=== PATIENT | male | born 1955 | race Caucasian/White ===

== ENCOUNTER 2020-08-06 04:10 | Emergency (ER) | payer MEDICARE ==
[~2020-08-06 04:10] MED LIST: ASPIRIN EC81 MG PO; CATAPRES 0.1MG0.1 MG PO; CIPRO500 MG PO; FLOMAX 0.4 MG0.4 MG PO; FLOMAX0.4 MG PO; LIPITOR TAB 2020 MG PO; PEPCID AC20 MG PO; PREDNISONE 10 M10 MG PO; THERAGRAN M TAB1 EA PO; VITAMIN B-121000 MCG PO; ZYLOPRIM 100 M100 MG PO
[2020-08-06 04:49] LABS: RED BLOOD COUNT 3.79 M/UL (4.20-5.50); WHITE BLOOD COUNT 10.1 K/UL (4.5-11.0)
[2020-08-06 05:14] LABS: BUN/CREATININE RATIO 7 (0-10)
[2020-08-06] MEDS ORDERED: NEURONTIN100 MG PO (06:42)
== END 2020-08-06 07:13 | disposition home or self-care (01) ==
LOC: ER1 04:10
PROVIDERS: Family Medicine
DX: R53.1 Weakness (principal); R29.6 Repeated falls; Z88.5 Allergy status to narcotic agent; Z88.8 Allergy status to other drugs, medicaments and biological substances; Z90.89 Acquired absence of other organs
CPT/HCPCS: 70450; 71045; 80053; 82550; 82553; 83874; 83880; 84484; 85025; 93005; 99284

== ENCOUNTER 2020-11-06 23:49 | Observation (INO) | payer MEDICARE ==
[~2020-11-06] VITALS: Ht 165.1 cm; Wt 92.5 kg
[~2020-11-06 23:49] MED LIST changes: +NEURONTIN100 MG PO
[2020-11-07 01:12] LABS: RED BLOOD COUNT 3.77 M/UL (4.20-5.50); WHITE BLOOD COUNT 11.3 K/UL (4.5-11.0)
[2020-11-07 01:23] LABS: BUN/CREATININE RATIO 7 (0-10)
[2020-11-07] MEDS ORDERED: ROPINIROLE HCL0.5 MG PO (13:54)
[2020-11-07] MEDS ORDERED: PROTONIX40 MG PO (13:54)
[2020-11-07] MEDS ORDERED: SAW PALMETTO160 MG PO (13:55)
[2020-11-07] MEDS ORDERED: COZAAR100 MG PO (13:55)
[2020-11-07] MEDS ORDERED: FERROUS SULFAT325 M2 PO (13:56)
[2020-11-07] MEDS ORDERED: DAILY VALUE1 EACH PO (13:56)
[2020-11-07] MEDS ORDERED: FUROSEMIDE40 MG PO (13:57)
[2020-11-07] MEDS ORDERED: METOPROLOL TAR100 MG PO (17:48)
[2020-11-07] MEDS ORDERED: CALCIUM ACETAT667 MG PO (17:56)
[2020-11-09] MEDS ORDERED: BRILINTA 90 MG90 MG PO (10:50)
== END 2020-11-08 13:38 | disposition home or self-care (01) ==
LOC: ER1 23:49 → CDU 11-07 03:55 → MED SURG 4 11-07 03:55
PROVIDERS: Physician Assistant; ADMIT Internal Medicine
DX: R07.89 Other chest pain (principal); I25.10 Atherosclerotic heart disease of native coronary artery without angina pectoris; I13.11 Hypertensive heart and chronic kidney disease without heart failure, with stage 5 chronic kidney disease, or end stage renal disease; E11.22 Type 2 diabetes mellitus with diabetic chronic kidney disease; N18.6 End stage renal disease; E11.40 Type 2 diabetes mellitus with diabetic neuropathy, unspecified; Z20.822 Contact with and (suspected) exposure to COVID-19; Z99.2 Dependence on renal dialysis; Z95.1 Presence of aortocoronary bypass graft; Z86.73 Personal history of transient ischemic attack (TIA), and cerebral infarction without residual deficits; Z88.5 Allergy status to narcotic agent; Z88.6 Allergy status to analgesic agent; Z88.8 Allergy status to other drugs, medicaments and biological substances; Z79.82 Long term (current) use of aspirin; Z79.899 Other long term (current) drug therapy
CPT/HCPCS: 71045; 78452; 80053; 81001; 82550; 82553; 82962; 83605; 83874; 83880; 84484; 85025; 85610; 85730; 87040; 87086; 93017; 99285; A9502; G0378; J2405; J2785; U0002

== ENCOUNTER 2020-11-09 02:36 | Inpatient (IN) | payer MEDICARE ==
[~2020-11-09] VITALS: Ht 165.1 cm; Wt 97.5 kg
[~2020-11-09 02:36] MED LIST changes: +CALCIUM ACETAT667 MG PO; +COZAAR100 MG PO; +DAILY VALUE1 EACH PO; +FERROUS SULFAT325 M2 PO; +FUROSEMIDE40 MG PO; +METOPROLOL TAR100 MG PO; +PROTONIX40 MG PO; +ROPINIROLE HCL0.5 MG PO; +SAW PALMETTO160 MG PO
[2020-11-09 03:15] LABS: RED BLOOD COUNT 3.76 M/UL (4.20-5.50)
[2020-11-09 03:50] LABS: BUN/CREATININE RATIO 8 (0-10)
[2020-11-09 07:33] LABS: HEMOGLOBIN 9.4 gm/dl (14.0-17.5); RED BLOOD COUNT 3.18 M/UL (4.20-5.50); WHITE BLOOD COUNT 10.3 K/UL (4.5-11.0)
[2020-11-09] MEDS ORDERED: BRILINTA 90 MG90 MG PO (10:50)
== END 2020-11-09 17:26 | disposition short-term general hospital (02) | DRG 228 ==
LOC: ER1 02:36 → CCU 05:33
PROVIDERS: Emergency Medicine; Internal Medicine Interventional Cardiology; ADMIT Internal Medicine
PROC: B24BZZ4 Ultrasonography of Heart with Aorta, Transesophageal (ICD-10-PCS; principal; 2020-11-09)
PROC: 027034Z Dilation of Coronary Artery, One Artery with Drug-eluting Intraluminal Device, Percutaneous Approach (ICD-10-PCS; 2020-11-09)
PROC: 02C00ZZ Extirpation of Matter from Coronary Artery, One Artery, Open Approach (ICD-10-PCS; 2020-11-09)
PROC: 4A023N7 Measurement of Cardiac Sampling and Pressure, Left Heart, Percutaneous Approach (ICD-10-PCS; 2020-11-09)
PROC: B2111ZZ Fluoroscopy of Multiple Coronary Arteries using Low Osmolar Contrast (ICD-10-PCS; 2020-11-09)
DX: I21.19 ST elevation (STEMI) myocardial infarction involving other coronary artery of inferior wall (principal); N18.6 End stage renal disease; I12.0 Hypertensive chronic kidney disease with stage 5 chronic kidney disease or end stage renal disease; I25.10 Atherosclerotic heart disease of native coronary artery without angina pectoris; R78.5 Finding of other psychotropic drug in blood; I34.0 Nonrheumatic mitral (valve) insufficiency; E66.9 Obesity, unspecified; Z88.8 Allergy status to other drugs, medicaments and biological substances; Z95.1 Presence of aortocoronary bypass graft; Z99.2 Dependence on renal dialysis; Z79.82 Long term (current) use of aspirin; Z81.1 Family history of alcohol abuse and dependence; Z82.49 Family history of ischemic heart disease and other diseases of the circulatory system; Z83.3 Family history of diabetes mellitus; Z88.6 Allergy status to analgesic agent; Z90.49 Acquired absence of other specified parts of digestive tract; Z68.35 Body mass index [BMI] 35.0-35.9, adult
CPT/HCPCS: ECHO; 36415; 71045; 78452; 80048; 80053; 81001; 82550; 82553; 82962; 83605; 83874; 83880; 84484; 85025; 85027; 85610; 85730; 87040; 87086; 90945; 93005; 93017; 93306; 99285; A9502; C1725; C1757; C1769; C1887; G0378; J0461; J0583; J1644; J2250; J2405; J2785; J3010; J3246; J7040; Q9965; U0002

== ENCOUNTER 2021-04-12 18:43 | Inpatient (IN) | payer MEDICARE ==
[~2021-04-12] VITALS: Ht 165.1 cm; Wt 88.0 kg
[~2021-04-12 18:43] MED LIST changes: +BRILINTA 90 MG90 MG PO
[2021-04-12 19:32] LABS: HEMOGLOBIN 10.6 gm/dl (14.0-17.5); RED BLOOD COUNT 3.57 M/UL (4.20-5.50); WHITE BLOOD COUNT 13.6 K/UL (4.5-11.0)
[2021-04-13 04:18] LABS: HEMOGLOBIN 10.3 gm/dl (14.0-17.5); RED BLOOD COUNT 3.47 M/UL (4.20-5.50); WHITE BLOOD COUNT 12.4 K/UL (4.5-11.0)
[2021-04-14 04:06] LABS: HEMOGLOBIN 10.5 gm/dl (14.0-17.5); RED BLOOD COUNT 3.53 M/UL (4.20-5.50); WHITE BLOOD COUNT 10.9 K/UL (4.5-11.0)
--- NOTE | 2021-04-14 04:34 | NUR ---
PATIENT TOOK HIMSELF OFF DIALYSIS MACHINE. CALLED DIALYSIS NURSE, SHE IS AWARE AND STATED IT WOULD BE OKAY THAT SHE WOULD BE HERE AROUND 8AM.
[2021-04-14] MEDS ORDERED: ELIQUIS 2.5 MG2.5 MG PO (11:56)
[2021-04-14] MEDS ORDERED: LOPRESSOR 25 MG25 MG PO (11:56)
[2021-04-14] MEDS ORDERED: ISOSORBIDE MONO30 MG PO (11:56)
== END 2021-04-14 14:25 | disposition home or self-care (01) | DRG 280 ==
LOC: ER1 18:43 → CDU 20:26 → PROG CARE 20:26
PROVIDERS: Family Medicine; Internal Medicine; ADMIT Internal Medicine
PROC: B24BZZ4 Ultrasonography of Heart with Aorta, Transesophageal (ICD-10-PCS; principal; 2021-04-13)
PROC: 4A023N7 Measurement of Cardiac Sampling and Pressure, Left Heart, Percutaneous Approach (ICD-10-PCS; 2021-04-13)
PROC: B2111ZZ Fluoroscopy of Multiple Coronary Arteries using Low Osmolar Contrast (ICD-10-PCS; 2021-04-13)
PROC: B2131ZZ Fluoroscopy of Multiple Coronary Artery Bypass Grafts using Low Osmolar Contrast (ICD-10-PCS; 2021-04-13)
PROC: B2151ZZ Fluoroscopy of Left Heart using Low Osmolar Contrast (ICD-10-PCS; 2021-04-13)
PROC: 3E1M39Z Irrigation of Peritoneal Cavity using Dialysate, Percutaneous Approach (ICD-10-PCS; 2021-04-13)
PROC: B2181ZZ Fluoroscopy of Left Internal Mammary Bypass Graft using Low Osmolar Contrast (ICD-10-PCS; 2021-04-13)
DX: I21.4 Non-ST elevation (NSTEMI) myocardial infarction (principal); N18.6 End stage renal disease; I12.0 Hypertensive chronic kidney disease with stage 5 chronic kidney disease or end stage renal disease; E87.3 Alkalosis; T82.868A Thrombosis due to vascular prosthetic devices, implants and grafts, initial encounter; I25.110 Atherosclerotic heart disease of native coronary artery with unstable angina pectoris; Z20.822 Contact with and (suspected) exposure to COVID-19; G25.81 Restless legs syndrome; N40.0 Benign prostatic hyperplasia without lower urinary tract symptoms; Z96.0 Presence of urogenital implants; E78.5 Hyperlipidemia, unspecified; Z99.2 Dependence on renal dialysis; Z86.73 Personal history of transient ischemic attack (TIA), and cerebral infarction without residual deficits; Z95.1 Presence of aortocoronary bypass graft; Z90.49 Acquired absence of other specified parts of digestive tract; Z88.5 Allergy status to narcotic agent; Z82.49 Family history of ischemic heart disease and other diseases of the circulatory system; Z79.899 Other long term (current) drug therapy; K21.9 Gastro-esophageal reflux disease without esophagitis
CPT/HCPCS: ECHO; 36415; 36600; 71045; 80048; 80053; 82550; 82553; 82803; 83036; 83735; 83874; 84484; 85025; 85730; 90945; 93005; 93306; 99152; 99153; 99285; C1760; C1769; C1894; J1170; J1644; J2250; J2550; J3010; J7040; Q9965; U0002

== ENCOUNTER 2021-07-14 20:43 | Emergency (ER) | payer MEDICARE ==
[~2021-07-14 20:43] MED LIST changes: +ELIQUIS 2.5 MG2.5 MG PO; +ISOSORBIDE MONO30 MG PO; +LOPRESSOR 25 MG25 MG PO
[2021-07-14 21:27] LABS: HEMOGLOBIN 11.1 gm/dl (14.0-17.5); RED BLOOD COUNT 3.59 M/UL (4.20-5.50); WHITE BLOOD COUNT 10.9 K/UL (4.5-11.0)
== END 2021-07-15 03:15 | disposition home or self-care (01) ==
LOC: ER1 20:43
PROVIDERS: Family Medicine
DX: R55 Syncope and collapse (principal); S39.012A Strain of muscle, fascia and tendon of lower back, initial encounter; S70.02XA Contusion of left hip, initial encounter; K59.00 Constipation, unspecified; R51.9 Headache, unspecified; N18.6 End stage renal disease; I11.9 Hypertensive heart disease without heart failure; E78.5 Hyperlipidemia, unspecified; I25.10 Atherosclerotic heart disease of native coronary artery without angina pectoris; Z95.1 Presence of aortocoronary bypass graft; Z99.2 Dependence on renal dialysis; Z88.5 Allergy status to narcotic agent; W19.XXXA Unspecified fall, initial encounter
CPT/HCPCS: 70450; 71045; 72131; 72192; 73502; 80053; 81001; 82550; 82553; 84484; 85025; 87086; 93005; 99285

== ENCOUNTER 2021-09-10 11:34 | Inpatient (IN) | payer MEDICARE ==
[~2021-09-10] VITALS: Ht 165.1 cm; Wt 79.5 kg
[~2021-09-10 11:34] MED LIST changes: -LIPITOR TAB 2020 MG PO; +LIPITOR80 MG PO; -SAW PALMETTO160 MG PO
[2021-09-10 12:42] LABS: HEMOGLOBIN 10.3 gm/dl (14.0-17.5); RED BLOOD COUNT 3.37 M/UL (4.20-5.50)
[2021-09-10] MEDS ORDERED: SAW PALMETTO160 MG PO (13:55)
[2021-09-10] MEDS ORDERED: LORATADINE10 MG PO (16:25)
[2021-09-10] MEDS ORDERED: RENVELA800 MG PO (16:26)
[2021-09-10] MEDS ORDERED: LISINOPRIL10 MG PO (16:27)
[2021-09-10] MEDS ORDERED: NITROGLYCERIN0.4 MG SL (16:28)
[2021-09-10] MEDS ORDERED: METOPROLOL TART50 MG PO (16:29)
[2021-09-10] MEDS ORDERED: BRILINTA90 MG PO (17:18)
[2021-09-10] MEDS ORDERED: ELIQUIS2.5 MG PO (17:23)
[2021-09-11 08:29] LABS: HEMOGLOBIN 10.4 gm/dl (14.0-17.5); RED BLOOD COUNT 3.49 M/UL (4.20-5.50)
[2021-09-11 08:40] LABS: WHITE BLOOD COUNT 17.5 K/UL (4.5-11.0)
[2021-09-13 09:18] LABS: HBSAG SCREEN Negative (Negative); HCV AB <0.1 (0.0-0.9); HEP A AB, IGM Negative (Negative); HEP B CORE AB, IGM Negative (Negative)
[2021-09-13] MEDS ORDERED: RANEXA500 MG PO (12:10)
== END 2021-09-14 12:25 | disposition home or self-care (01) | DRG 302 ==
LOC: ER1 11:34 → CDU 14:20 → CCU 19:53 → PROG CARE 09-11 12:23 → CDU 09-11 14:49 → PROG CARE 09-14 12:25
PROVIDERS: Internal Medicine Nephrology; Physician Assistant; ADMIT Internal Medicine
PROC: 5A1D70Z Performance of Urinary Filtration, Intermittent, Less than 6 Hours Per Day (ICD-10-PCS; principal; 2021-09-11)
PROC: 5A1D70Z Performance of Urinary Filtration, Intermittent, Less than 6 Hours Per Day (ICD-10-PCS; 2021-09-13)
DX: I25.118 Atherosclerotic heart disease of native coronary artery with other forms of angina pectoris (principal); N18.6 End stage renal disease; I13.2 Hypertensive heart and chronic kidney disease with heart failure and with stage 5 chronic kidney disease, or end stage renal disease; N25.81 Secondary hyperparathyroidism of renal origin; Z20.822 Contact with and (suspected) exposure to COVID-19; E78.5 Hyperlipidemia, unspecified; K21.9 Gastro-esophageal reflux disease without esophagitis; G25.81 Restless legs syndrome; I50.9 Heart failure, unspecified; D63.1 Anemia in chronic kidney disease; D50.9 Iron deficiency anemia, unspecified; R11.2 Nausea with vomiting, unspecified; I08.0 Rheumatic disorders of both mitral and aortic valves; E87.5 Hyperkalemia; N40.0 Benign prostatic hyperplasia without lower urinary tract symptoms; T45.4X5A Adverse effect of iron and its compounds, initial encounter; Z95.1 Presence of aortocoronary bypass graft; Z95.5 Presence of coronary angioplasty implant and graft; I25.2 Old myocardial infarction; Z99.2 Dependence on renal dialysis; Z86.73 Personal history of transient ischemic attack (TIA), and cerebral infarction without residual deficits; Z79.01 Long term (current) use of anticoagulants; Z90.49 Acquired absence of other specified parts of digestive tract; Z82.49 Family history of ischemic heart disease and other diseases of the circulatory system; Z88.8 Allergy status to other drugs, medicaments and biological substances
CPT/HCPCS: 36415; 71045; 74018; 80048; 80053; 80074; 82550; 82553; 83605; 84484; 85025; 85027; 85730; 87040; 90937; 93005; 93308; 96372; 96374; 96375; 96376; 99285; G0257; J0171; J1170; J1200; J1644; J2405; J2550; J2930

== ENCOUNTER 2021-10-23 02:17 | Observation (INO) | payer MEDICARE ==
[~2021-10-23] VITALS: Ht 165.1 cm; Wt 81.2 kg
[~2021-10-23 02:17] MED LIST changes: +BRILINTA90 MG PO; +ELIQUIS2.5 MG PO; +LISINOPRIL10 MG PO; +LORATADINE10 MG PO; +METOPROLOL TART50 MG PO; +NITROGLYCERIN0.4 MG SL; +RANEXA500 MG PO; +RENVELA800 MG PO; +SAW PALMETTO160 MG PO
[2021-10-23 02:40] LABS: HEMOGLOBIN 10.1 gm/dl (14.0-17.5); RED BLOOD COUNT 3.27 M/UL (4.20-5.50); WHITE BLOOD COUNT 9.3 K/UL (4.5-11.0)
[2021-10-23] MEDS ORDERED: PREDNISOLONE ACE5 ML OD (12:39)
[2021-10-23] MEDS ORDERED: LISINOPRIL10 MG PO (12:50)
[2021-10-23] MEDS ORDERED: ISOSORBIDE MONO30 MG PO (12:52)
[2021-10-23] MEDS ORDERED: CLONIDINE HCL0.1 MG PO (12:52)
[2021-10-23] MEDS ORDERED: BRILINTA90 MG PO (12:53)
[2021-10-23] MEDS ORDERED: MULTIVITAMIN1 EACH PO (12:54)
[2021-10-23] MEDS ORDERED: ROPINIROLE HCL0.5 MG PO (12:54)
== END 2021-10-24 10:59 | disposition short-term general hospital (02) ==
LOC: ER1 02:17 → MED SURG 4 03:55 → CDU 03:55 → MED SURG 4 08:03
PROVIDERS: Family Medicine; Internal Medicine Nephrology; ADMIT Internal Medicine
DX: I25.110 Atherosclerotic heart disease of native coronary artery with unstable angina pectoris (principal); I25.2 Old myocardial infarction; I12.0 Hypertensive chronic kidney disease with stage 5 chronic kidney disease or end stage renal disease; N18.6 End stage renal disease; D63.1 Anemia in chronic kidney disease; E78.5 Hyperlipidemia, unspecified; N40.0 Benign prostatic hyperplasia without lower urinary tract symptoms; K21.9 Gastro-esophageal reflux disease without esophagitis; N25.81 Secondary hyperparathyroidism of renal origin; G25.81 Restless legs syndrome; Z88.5 Allergy status to narcotic agent; Z88.6 Allergy status to analgesic agent; Z88.8 Allergy status to other drugs, medicaments and biological substances; Z95.1 Presence of aortocoronary bypass graft; Z99.2 Dependence on renal dialysis; Z86.73 Personal history of transient ischemic attack (TIA), and cerebral infarction without residual deficits; Z91.14 Patient's other noncompliance with medication regimen; Z79.01 Long term (current) use of anticoagulants; Z79.899 Other long term (current) drug therapy; Z95.5 Presence of coronary angioplasty implant and graft; Z90.49 Acquired absence of other specified parts of digestive tract
CPT/HCPCS: 36415; 71045; 78452; 80053; 81001; 82550; 82553; 83605; 83690; 84100; 84484; 85025; 87040; 93005; 93017; 99285; A9502; G0378; J2785

== ENCOUNTER 2021-11-10 21:58 | Emergency (ER) | payer MEDICARE ==
[~2021-11-10 21:58] MED LIST changes: +CLONIDINE HCL0.1 MG PO; +MULTIVITAMIN1 EACH PO; +PREDNISOLONE ACE5 ML OD
[2021-11-10 23:17] LABS: HEMOGLOBIN 10.2 gm/dl (14.0-17.5); RED BLOOD COUNT 3.35 M/UL (4.20-5.50); WHITE BLOOD COUNT 12.1 K/UL (4.5-11.0)
[2021-11-11] MEDS ORDERED: ZOFRAN ODT 4 MG4 MG PO (02:18)
[2021-11-11] MEDS ORDERED: PHENERGAN 12.12.5 MG PR (02:18)
[2021-11-11] MEDS ORDERED: PHENERGAN 25 MG25 M1 PO (02:18)
[2021-11-11] MEDS ORDERED: RENVELA800 MG PO (12:41)
[2021-11-11] MEDS ORDERED: ASPIRIN EC81 MG PO (12:43)
[2021-11-11] MEDS ORDERED: SAW PALMETTO500 MG PO (12:44)
== END 2021-11-11 03:28 | disposition home or self-care (01) ==
LOC: ER1 21:58
PROVIDERS: Family Medicine
DX: R11.2 Nausea with vomiting, unspecified (principal); Z95.1 Presence of aortocoronary bypass graft; I25.10 Atherosclerotic heart disease of native coronary artery without angina pectoris; I11.9 Hypertensive heart disease without heart failure; E78.5 Hyperlipidemia, unspecified; Z99.2 Dependence on renal dialysis; K21.9 Gastro-esophageal reflux disease without esophagitis; Z20.822 Contact with and (suspected) exposure to COVID-19; Z86.73 Personal history of transient ischemic attack (TIA), and cerebral infarction without residual deficits; Z88.5 Allergy status to narcotic agent
CPT/HCPCS: 71045; 80053; 82550; 82553; 83605; 83690; 83735; 84484; 85025; 93005; 96361; 96374; 96375; 96376; 99284; J2405; J2550; U0002

== ENCOUNTER 2021-11-11 09:06 | Inpatient (IN) | payer MEDICARE ==
[~2021-11-11] VITALS: Ht 165.1 cm; Wt 81.2 kg
[~2021-11-11 09:06] MED LIST changes: -FLOMAX0.4 MG PO; +PHENERGAN 12.12.5 MG PR; +PHENERGAN 25 MG25 M1 PO; +ZOFRAN ODT 4 MG4 MG PO
[2021-11-11 10:08] LABS: HEMOGLOBIN 9.9 gm/dl (14.0-17.5); RED BLOOD COUNT 3.24 M/UL (4.20-5.50); WHITE BLOOD COUNT 12.6 K/UL (4.5-11.0)
[2021-11-11] MEDS ORDERED: RENVELA800 MG PO (12:41)
[2021-11-11] MEDS ORDERED: ASPIRIN EC81 MG PO (12:43)
[2021-11-11] MEDS ORDERED: SAW PALMETTO500 MG PO (12:44)
--- NOTE | 2021-11-11 18:08 | NUR ---
1808- NOTIFIED DR ARBLOEDA OF [facility]. CKMB 16.1 AND TROPONIN 2951.8. NO NEW ORDERS AT THIS TIME.
[2021-11-12 00:23] LABS: RED BLOOD COUNT 3.28 M/UL (4.20-5.50); WHITE BLOOD COUNT 14.5 K/UL (4.5-11.0)
[2021-11-12 16:50] LABS: HEMOGLOBIN 11.4 gm/dl (14.0-17.5); WHITE BLOOD COUNT 15.8 K/UL (4.5-11.0)
[2021-11-12 16:51] LABS: RED BLOOD COUNT 3.74 M/UL (4.20-5.50)
--- NOTE | 2021-11-12 18:10 | NUR ---
1730 #16 NG tube placed in patient's right nare without difficulty. Verified placement by aspiration of stomach contents which were dark green in color. Patient tolerated well. 1755 Placement of NG tube verified by Xray.
--- NOTE | 2021-11-12 20:34 | NUR ---
191 RECEIVED FROM 4TH FLOOR. CARE RESUMED. IV RIGHT AC LEAKING. IV WAS DISCONTINUED. NEW IV STARTED CHARTED AND HEPARIN DRIP RESUMED. C/O RIGHT SIDED CHEST PAIN . DR YOUNG AND DR. PARKER NOTIFIED. ORDERS RECEIVED.
[2021-11-13 05:08] LABS: HEMOGLOBIN 10.5 gm/dl (14.0-17.5); RED BLOOD COUNT 3.49 M/UL (4.20-5.50)
[2021-11-13 05:09] LABS: WHITE BLOOD COUNT 10.4 K/UL (4.5-11.0)
[2021-11-14 05:04] LABS: HEMOGLOBIN 10.1 gm/dl (14.0-17.5); RED BLOOD COUNT 3.28 M/UL (4.20-5.50); WHITE BLOOD COUNT 12.3 K/UL (4.5-11.0)
[2021-11-15 01:52] LABS: HEMOGLOBIN 10.1 gm/dl (14.0-17.5); RED BLOOD COUNT 3.38 M/UL (4.20-5.50); WHITE BLOOD COUNT 11.5 K/UL (4.5-11.0)
[2021-11-15 02:33] LABS: BUN/CREATININE RATIO 6 (0-10)
[2021-11-15] MEDS ORDERED: LISINOPRIL5 MG PO (14:17)
[2021-11-15] MEDS ORDERED: TYLENOL EXTRA500 MG PO ×2 (14:21→14:25)
[2021-11-15] MEDS ORDERED: ACETAMINOPHEN-1 EAC1 PO ×2 (14:27→14:39)
[2021-11-29] MEDS ORDERED: RANEXA500 MG PO (12:04)
== END 2021-11-15 15:34 | disposition home or self-care (01) | DRG 353 ==
LOC: ER1 09:06 → MED SURG 4 10:02 → CDU 10:02 → MED SURG 4 17:30 → CCU 11-12 19:29 → PROG CARE 11-14 14:50
PROVIDERS: Emergency Medicine; Internal Medicine; Internal Medicine Cardiovascular Disease; Physician Assistant; ADMIT Internal Medicine
PROC: 5A1D70Z Performance of Urinary Filtration, Intermittent, Less than 6 Hours Per Day (ICD-10-PCS; 2021-11-12)
PROC: 0WQF0ZZ Repair Abdominal Wall, Open Approach (ICD-10-PCS; 2021-11-13)
PROC: 5A1D70Z Performance of Urinary Filtration, Intermittent, Less than 6 Hours Per Day (ICD-10-PCS; principal; 2021-11-14)
DX: K44.0 Diaphragmatic hernia with obstruction, without gangrene (principal); N18.6 End stage renal disease; Z20.822 Contact with and (suspected) exposure to COVID-19; I13.2 Hypertensive heart and chronic kidney disease with heart failure and with stage 5 chronic kidney disease, or end stage renal disease; I50.32 Chronic diastolic (congestive) heart failure; K43.6 Other and unspecified ventral hernia with obstruction, without gangrene; E78.5 Hyperlipidemia, unspecified; K21.9 Gastro-esophageal reflux disease without esophagitis; G25.81 Restless legs syndrome; I95.9 Hypotension, unspecified; G47.419 Narcolepsy without cataplexy; I25.10 Atherosclerotic heart disease of native coronary artery without angina pectoris; D63.1 Anemia in chronic kidney disease; N40.0 Benign prostatic hyperplasia without lower urinary tract symptoms; Z95.5 Presence of coronary angioplasty implant and graft; I25.2 Old myocardial infarction; Z86.73 Personal history of transient ischemic attack (TIA), and cerebral infarction without residual deficits; Z99.2 Dependence on renal dialysis; Z79.82 Long term (current) use of aspirin; Z79.01 Long term (current) use of anticoagulants; Z88.8 Allergy status to other drugs, medicaments and biological substances; Z83.3 Family history of diabetes mellitus; Z82.49 Family history of ischemic heart disease and other diseases of the circulatory system; Z83.49 Family history of other endocrine, nutritional and metabolic diseases; Z82.0 Family history of epilepsy and other diseases of the nervous system
CPT/HCPCS: 36415; 71045; 74018; 80048; 80053; 82550; 82553; 83605; 83690; 83735; 84484; 85025; 85027; 85610; 85730; 87040; 90937; 93005; 96361; 96374; 96375; 96376; 97161; 99284; 99285; J0690; J1100; J1170; J1644; J2001; J2405; J2550; J2704; J2710; J3010; U0002

== ENCOUNTER 2021-11-23 10:43 | Emergency (ER) | payer MEDICARE ==
[~2021-11-23 10:43] MED LIST changes: +ACETAMINOPHEN-1 EAC1 PO; +LISINOPRIL5 MG PO; +SAW PALMETTO500 MG PO; +TYLENOL EXTRA500 MG PO
[2021-11-23 11:09] LABS: HEMOGLOBIN 9.9 gm/dl (14.0-17.5); RED BLOOD COUNT 3.25 M/UL (4.20-5.50); WHITE BLOOD COUNT 11.2 K/UL (4.5-11.0)
== END 2021-11-23 12:13 | disposition left against medical advice (07) ==
LOC: ER1 10:43
PROVIDERS: Physician Assistant
DX: R07.2 Precordial pain (principal); I11.0 Hypertensive heart disease with heart failure; I50.9 Heart failure, unspecified; I25.2 Old myocardial infarction; Z88.5 Allergy status to narcotic agent
CPT/HCPCS: 71045; 80053; 82550; 82553; 84484; 85025; 85379; 93005; 99281

== ENCOUNTER 2021-11-28 05:47 | Observation (INO) | payer MEDICARE ==
[~2021-11-28] VITALS: Ht 165.1 cm; Wt 78.9 kg
[2021-11-28 06:17] LABS: HEMOGLOBIN 9.2 gm/dl (14.0-17.5); RED BLOOD COUNT 3.02 M/UL (4.20-5.50); WHITE BLOOD COUNT 11.4 K/UL (4.5-11.0)
[2021-11-29 02:58] LABS: HEMOGLOBIN 8.9 gm/dl (14.0-17.5); RED BLOOD COUNT 2.92 M/UL (4.20-5.50); WHITE BLOOD COUNT 9.3 K/UL (4.5-11.0)
[2021-11-29] MEDS ORDERED: RANEXA500 MG PO (12:04)
[2021-11-30 08:13] LABS: HBSAG SCREEN Negative (Negative); HCV AB 0.1 (0.0-0.9); HEP A AB, IGM Negative (Negative); HEP B CORE AB, IGM Negative (Negative)
== END 2021-11-29 17:30 | disposition home or self-care (01) ==
LOC: ER1 05:47 → CDU 09:45 → PROG CARE 19:50
PROVIDERS: Emergency Medicine; Internal Medicine Nephrology; Physician Assistant; ADMIT Internal Medicine
DX: R07.89 Other chest pain (principal); I25.110 Atherosclerotic heart disease of native coronary artery with unstable angina pectoris; I13.2 Hypertensive heart and chronic kidney disease with heart failure and with stage 5 chronic kidney disease, or end stage renal disease; N18.6 End stage renal disease; I50.32 Chronic diastolic (congestive) heart failure; E78.5 Hyperlipidemia, unspecified; D63.1 Anemia in chronic kidney disease; G47.419 Narcolepsy without cataplexy; N40.0 Benign prostatic hyperplasia without lower urinary tract symptoms; Z99.2 Dependence on renal dialysis; E66.9 Obesity, unspecified; Z68.28 Body mass index [BMI] 28.0-28.9, adult; Z79.82 Long term (current) use of aspirin; Z79.899 Other long term (current) drug therapy; Z86.73 Personal history of transient ischemic attack (TIA), and cerebral infarction without residual deficits; Z88.5 Allergy status to narcotic agent; Z95.1 Presence of aortocoronary bypass graft; Z95.5 Presence of coronary angioplasty implant and graft
CPT/HCPCS: 71045; 80048; 80053; 80074; 82550; 82553; 83540; 83550; 83735; 83880; 84484; 85025; 90937; 93005; 96372; 99285; G0378; J1650

== ENCOUNTER 2022-01-11 12:39 | Emergency (ER) | payer MEDICARE ==
[2022-01-11 13:42] LABS: HEMOGLOBIN 9.2 gm/dl (14.0-17.5); RED BLOOD COUNT 2.96 M/UL (4.20-5.50); WHITE BLOOD COUNT 7.4 K/UL (4.5-11.0)
== END 2022-01-11 16:49 | disposition home or self-care (01) ==
LOC: ER1 12:39
PROVIDERS: Physician Assistant Medical
DX: S01.01XA Laceration without foreign body of scalp, initial encounter (principal); R41.82 Altered mental status, unspecified; I13.10 Hypertensive heart and chronic kidney disease without heart failure, with stage 1 through stage 4 chronic kidney disease, or unspecified chronic kidney disease; N18.9 Chronic kidney disease, unspecified; N17.9 Acute kidney failure, unspecified; E87.6 Hypokalemia; Z95.1 Presence of aortocoronary bypass graft; Z86.73 Personal history of transient ischemic attack (TIA), and cerebral infarction without residual deficits; Z88.5 Allergy status to narcotic agent; W19.XXXA Unspecified fall, initial encounter; Y92.009 Unspecified place in unspecified non-institutional (private) residence as the place of occurrence of the external cause; Z51.81 Encounter for therapeutic drug level monitoring
CPT/HCPCS: 12001; 36600; 70450; 71045; 72125; 72128; 73030; 80053; 80307; 82140; 82550; 82553; 82803; 83605; 83690; 83735; 83880; 84484; 85025; 85610; 87040; 93005; 96374; 96375; 99284; J0610; J2270

== ENCOUNTER → 2022-01-17 | Outpatient (CLI) | payer MEDICARE | LOC: MRI 11:00 | DX: H53.483 Generalized contraction of visual field, bilateral (principal); G31.9 Degenerative disease of nervous system, unspecified; R90.82 White matter disease, unspecified | CPT/HCPCS: 70553; A9577 ==